=== PATIENT | female | born 1955 | race Caucasian/White ===

== ENCOUNTER 2017-10-11 14:49 | Emergency (ER) | payer BC ==
[2017-10-11 15:10] LABS: #Eosinphils 0.1 thou/uL (0.0-0.7); #Lymphocytes 1.3 thou/uL (1.20-3.40); #Monocytes 0.2 thou/uL (0.11-0.59); #Neutrophils 1.7 thou/uL (1.40-6.50); %Basophils 0.2 % (0.0-1.0); %Eosinophils 3.3 % (0.0-10.0); %Lymphocytes 37.8 % (21.0-51.0); %Monocytes 6.8 % (0.0-10.0); %Neutrophils 51.9 % (42.0-75.0); Hemoglobin 9.2 g/dL (12.0-16.0); Mean Corpuscular HGB CONC 33.9 g/dL (32.0-36.0); Mean Corpuscular Hemoglobin 30.7 pg (27.0-31.0); Mean Corpuscular Volume 90.8 fl (81.0-99.0); Mean Platelet Volume 6.9 fL (7.4-10.4); Platelet Count 241 thou/uL (130-400); RBC Distribution Width 13.8 % (11.5-14.5); Red Blood Cell (RBC) Count 2.98 mill/uL (4.20-5.40); White Blood Cell (WBC) Count 3.3 thou/uL (4.8-10.8)
[2017-10-11 15:32] LABS: ALT (SGPT) 10 U/L (8-55); AST (SGOT) 11 U/L (5-34); Albumin 4.1 g/dL (3.4-4.8); Alkaline Phosphatase 58 U/L (40-150); Anion Gap 16 mmol/L (10-20); BUN (Urea Nitrogen) 47 mg/dL (9.8-20.1); Bilirubin, Total 0.3 mg/dL (0.2-1.2); Calc. Creatinine Clearance 0 mL/min (70-130); Calcium 9.4 mg/dL (7.8-10.44); Carbon Dioxide 28 mmol/L (23-31); Chloride 101 mmol/L (98-107); Estimated GFR-MDRD 11; Globulin 3.1 g/dL (2.4-3.5); Glucose 137 mg/dL (80-115); Potassium 3.8 mmol/L (3.5-5.1); Protein, Total 7.2 g/dL (6.0-8.3); Sodium 141 mmol/L (136-145)
[2017-10-11 15:38] LABS: Acetaminophen Less than 6.0 mcg/mL (10.0-30.0); Alcohol Less than 10 mg/dL (Less than 10); CK (CPK) 68 U/L (29-168); Salicylate Less than 8.0 mg/dL (15.0-30.0)
[2017-10-11 16:03] LABS: Bilirubin Negative (Negative); Blood, Urine Trace (Negative); Clarity CLOUDY (Clear); Glucose, Urine (Dipstick) 100 mg/dL (Negative); Leukocyte Trace (Negative); Nitrite Negative (Negative); Protein, Urine (Dipstick) 300 mg/dL (Neg-Trace); Specific Gravity, Urine 1.004 (1.002-1.036); Urobilinogen 0.2 mg/dL (0.2-1.0); pH, Urine 7.5 (5.0-9.0)
[2017-10-11 16:06] LABS: Bacteria/HPF 1+ HPF (None Seen); Hyaline Casts/LPF 0-3 HYALINE CAST LPF (0-3 Hyaline); RBC/HPF 0-3 HPF (0-3); WBC/HPF 0-3 HPF (0-3)
[2017-10-11 16:20] LABS: Amphetamine Not Detected (NotDetected); Barbiturates Screen Not Detected (NotDetected); Benzodiazepine Screen Not Detected (NotDetected); Cocaine Metabolite Screen Not Detected (NotDetected); Medtox Control Line Valid? VALID (VALID); Medtox Reader # READER 1; Methadone Not Detected (NotDetected); Methamphetamine Not Detected (NotDetected); Opiate Screen Not Detected (NotDetected); Oxycodone Screen Not Detected (NotDetected); Phencyclidine (PCP) Not Detected (NotDetected); THC/Cannabinoid Screen Not Detected (NotDetected); Tricyclic Screen Not Detected (NotDetected)
--- NOTE | 2017-10-11 19:06 | CT ---
CT HEAD NONCONTRAST 10/11/17 HISTORY: Altered mental status. COMPARISON: 06/12/11. FINDINGS: There is no evidence of acute intracranial hemorrhage or infarct. The ventricles appear normal in siz e, shape, and position. There is no mass effect or shift of midline structures. The visualized parana ratna sinuses remain well aerated. IMPRESSION: No acute intracranial abnormalities are demonstrated on noncontrast CT head. POS: [facility]
== END 2017-10-11 21:37 | disposition home or self-care (01) ==
LOC: ERS 14:49
DX: R41.82 Altered mental status, unspecified (principal); F31.9 Bipolar disorder, unspecified; F20.9 Schizophrenia, unspecified; N28.9 Disorder of kidney and ureter, unspecified; I10 Essential (primary) hypertension; Z99.2 Dependence on renal dialysis
CPT/HCPCS: 36415; 70450; 80053; 80164; 80306; 80307; 81003; 81015; 82550; 84439; 84443; 85025

== ENCOUNTER 2017-11-04 12:13 | Outpatient (CLI) | payer BC ==
--- NOTE | 2017-11-05 19:09 | EKG ---
Test Reason : Blood Pressure : / mmHG Vent. Rate : 075 BPM Atrial Rate : 075 BPM P-R Int : 154 ms QRS Dur : 100 ms QT Int : 418 ms P-R-T Axes : 059 062 030 degrees QTc Int : 466 ms Normal sinus rhythm Normal ECG When compared with ECG of 24-DEC-2016 06:54, No significant change was found Confirmed by DR. Harshil CHARLES MD ([id number]) on 11/05/2017 7:09:09 PM Referred By: TATYANA Confirmed By:DR. Harshil CHARLES MD
== END 2017-11-04 12:14 | disposition home or self-care (01) ==
LOC: LABBT 12:13
PROVIDERS: ATTEND Specialist
DX: Z01.818 Encounter for other preprocedural examination (principal); N18.6 End stage renal disease
CPT/HCPCS: 93005; 93010

== ENCOUNTER 2017-11-08 11:14 | Day surgery (SDC) | payer BC ==
--- NOTE | 2017-11-02 10:49 | HP ---
HISTORY OF PRESENT ILLNESS: Ms. Renetta Vogel is a 61-year-old female dialyzes at [facility] on Tuesday, Tuesday, and Tuesday at 4:20 p.m. She is followed by Dr. Hemphill. She desires pe ritoneal dialysis access. Plan is a laparoscopic peritoneal dialysis catheter. She understands the risks and benefits and understands she will need to see the peritoneal dialysis nurse 3-5 days after surgery for changing of her dressing and changing of the connections and education for PD. She under stands risks and benefits of procedure including infection, bleeding, reoperation and consents. She dialyzes via left wrist. She was dialyzed via left upper arm fistula. A more lateral cephalic vein was noted and transposed to her proximal radial artery. This is served well for dialysis. This fist ilya was placed on 12/24/2016. ALLERGIES: AMOXICILLIN, DOXYCYCLINE, IODINE. TOBACCO: None. ALCOHOL: None. MEDICATIONS: Norvasc, aspirin, Calcitriol, Tegretol, Coreg, Klonopin, Depakote, Imdur, Prozac, Prilo sec, Benadryl, [place]. ALLERGIES: SULFA. PAST MEDICAL HISTORY: Hypertension. PAST SURGICAL HISTORY: Total abdominal hysterectomy, appendectomy, bipolar, end-stage renal disease, minimal change disease in kidneys, left upper arm cephalic vein fistula exploration left wrist, Cimi no fistula findings, cephalic vein inadequate 2016. PHYSICAL EXAMINATION: VITAL SIGNS: 220 pounds, 66 inches, 145/79, 73, 99.7 degrees. HEENT: Unremarkable. LUNGS: Clear to auscultation. CARDIAC: Regular rate and rhythm without murmur or gallop. ABDOMEN: Soft, nontender, no masses. MUSCULOSKELETAL: Left upper arm fistula, good thrill and bruit. EXTREMITIES: Unremarkable. No ankle edema. ASSESSMENT AND PLAN: End-stage renal disease. PLAN: Laparoscopic peritoneal dialysis catheter placement. She understands risks of infection, blee ding, reoperation, malfunction of the catheter and consents. We will plan this s an outpatient.
[2017-11-08 12:59] LABS: #Basophils 0.1 thou/uL (0.0-0.2); #Eosinphils 0.3 thou/uL (0.0-0.7); #Lymphocytes 1.7 thou/uL (1.20-3.40); #Monocytes 0.4 thou/uL (0.11-0.59); %Basophils 1.2 % (0.0-1.0); %Eosinophils 4.9 % (0.0-10.0); %Lymphocytes 31.6 % (21.0-51.0); %Monocytes 8.1 % (0.0-10.0); %Neutrophils 54.2 % (42.0-75.0); Hemoglobin 9.4 g/dL (12.0-16.0); Mean Corpuscular HGB CONC 32.8 g/dL (32.0-36.0); Mean Corpuscular Hemoglobin 30.9 pg (27.0-31.0); Mean Corpuscular Volume 94.2 fl (81.0-99.0); Mean Platelet Volume 6.6 fL (7.4-10.4); Platelet Count 281 thou/uL (130-400); RBC Distribution Width 13.6 % (11.5-14.5); Red Blood Cell (RBC) Count 3.03 mill/uL (4.20-5.40); White Blood Cell (WBC) Count 5.5 thou/uL (4.8-10.8)
[2017-11-08] MEDS ORDERED: CEFAZOLIN/Water 2 GM/20 ML SYRINGE ONE (13:09)
[2017-11-08 13:18] LABS: Anion Gap 13 mmol/L (10-20); BUN (Urea Nitrogen) 44 mg/dL (9.8-20.1); Calc. Creatinine Clearance 0 mL/min (70-130); Carbon Dioxide 30 mmol/L (23-31); Chloride 103 mmol/L (98-107); Estimated GFR-MDRD 8; Glucose 96 mg/dL (80-115); Potassium 4.4 mmol/L (3.5-5.1); Sodium 142 mmol/L (136-145)
[2017-11-08] MEDS ORDERED: Fentanyl 250 MCG/5 ML VIAL ONE (15:17)
[2017-11-08] MEDS ORDERED: Bupivacaine/Epinephrine 0.25% 30 ML VIAL ONE (15:24)
[2017-11-08] MEDS ORDERED: Lidocaine 2% 10 ML INJ ONE (15:24)
[2017-11-08] MEDS ORDERED: Heparin 0 ML ONE (15:25)
[2017-11-08] MEDS ORDERED: Bupivacaine HCl 0.5%/Epinephrine 1:200,000/PF 30 ml Vial ONE (15:25)
[2017-11-08] MEDS ORDERED: Heparin 10,000 UNITS/1 ML VIAL ONE (15:26)
[2017-11-08] MEDS ORDERED: Levofloxacin 500 mg/D5W 100 ml Premix Bag ONE (15:33)
[2017-11-08] MEDS ORDERED: Fentanyl 100 MCG/2 ML VIAL ONE (16:57)
--- NOTE | 2017-11-08 20:40 | OP ---
DATE OF PROCEDURE: 11/08/2017 PREOPERATIVE DIAGNOSES: End-stage renal disease and functioning AV fistula. POSTOPERATIVE DIAGNOSES: End-stage renal disease with adhesions from prior surgery, omental and umbi lical area and functioning AV fistula. PROCEDURES: Laparoscopic adhesiolysis, laparoscopic peritoneal dialysis catheter placement, double c uffed pigtail exiting left lower quadrant, laparoscopic omentopexy. Laparoscopic sling 2-0 Ethibond suture to maintain catheter into the pelvis. SURGEON: Yg Roche M.D. ANESTHESIA: General. Local 0.25% Marcaine with epinephrine 60 mL with 2% Xylocaine 10 mL. PROCEDURE IN DETAIL: The patient was taken to the operating room where under general anesthesia, abd omen was prepared with ChloraPrep and draped in routine fashion with the patient in the supine positi on. Bilateral far lateral subcostal incisions were made and pneumoperitoneum to 15 mmHg obtained wit h the Veress needle, replacing it with a 5 port and video laparoscope inserted. There were omental a dhesions around the umbilicus from her previous infraumbilical incision and these were taken down lap aroscopically with LigaSure gaining good hemostasis. The omentum tended to reach down to the pelvis at this point and omentopexy was performed with 0 Ethibond suture transabdominal fixation upper abdom en and laparoscopic visualization. Exit site planned in the left lower quadrant, a stab incision mad e and a counter incision made just beneath the umbilical level paramedian and an 8-mm trocar catheter and placing the trocar catheter tunneling and subcutaneous tissue caudally oriented, penetrating int o the rectus muscle, found in laparoscopy penetrating the peritoneal cavity caudally. Peritoneal kiet lysis double cuffed pigtail was inserted and the internal cuff placed in the rectus sheath and the 8- mm port removed. [place] dissector was placed with the planned exit site. Stab incision made previ ously more dependent and left lateral to the counter incision and the catheter grasped and brought th rough the tunnel and placed in the external cuff beneath the skin exit site. Subcutaneous tissues ap proximated with 4-0 Monocryl, skin with subdermal 4-0 Monocryl. Catheter irrigated with heparinized saline solution 1000 units heparin per mL, 10 mL and then capped. The catheter even though it was tu nneled in such a way to project it towards the pelvis, it was appreciated that it would easily migrat e cephalad, thus a sling suture transabdominal fixation placed with a 2-0 Ethibond suture with GraNee needle. It was then irrigated and irrigated without problems. Irrigant and pneumoperitoneum evacua cayla. All instruments removed. All skin incisions approximated with interrupted subdermal 4-0 Monocr yl and DermaGlue applied.
== END 2017-11-08 18:35 | disposition home or self-care (01) ==
LOC: SDC 11:14
PROVIDERS: ATTEND Specialist
PROC: 0DUU4JZ Supplement Omentum with Synthetic Substitute, Percutaneous Endoscopic Approach (ICD-10-PCS; principal; 2017-11-08)
PROC: 0DNW4ZZ Release Peritoneum, Percutaneous Endoscopic Approach (ICD-10-PCS; principal; 2017-11-08)
DX: K66.0 Peritoneal adhesions (postprocedural) (postinfection) (principal); I12.0 Hypertensive chronic kidney disease with stage 5 chronic kidney disease or end stage renal disease; N18.6 End stage renal disease; F31.9 Bipolar disorder, unspecified; Z99.2 Dependence on renal dialysis; Z79.82 Long term (current) use of aspirin; Z79.899 Other long term (current) drug therapy; Z88.0 Allergy status to penicillin; Z88.1 Allergy status to other antibiotic agents; Z91.041 Radiographic dye allergy status; Z88.2 Allergy status to sulfonamides
CPT/HCPCS: 36415; 80048; 85025; 96374; J0131; J0670; J1644; J1956; J3010